=== PATIENT | male | born 1975 | race Caucasian/White ===

== ENCOUNTER 2019-04-06 17:31 | Emergency (ER) | payer OTHER ==
[~2019-04-06] VITALS: Ht 185.4 cm; Wt 109.1 kg
[2019-04-06] MEDS ORDERED: DOESNT KNOW NAMES (17:43)
[2019-04-06] MEDS ORDERED: TETRACAINE 0.5% OPHTH SOLN 4ML OD ONE (19:00)
[2019-04-06] MEDS ORDERED: FLUORESCEIN OPHTH 1 MG STRIP OD ONE (19:00)
--- NOTE | 2019-04-06 19:29 | REP ---
Clinical: Cough and chills . Comparison: None of the . Technique: PA and lateral. Findings: The mediastinum and cardiac silhouette are normal. Very subtle coarsened markings in the left mid to lower lung zone may reflect bronchitis. No effusion. No pneumothorax. Mediastinum and cardiac silhouette normal. Skeletal structures intact. Impression: 1. Bronchitis possible left lower lobe atelectasis. Electronically Signed by David Palumbo MD 04/06/2019 07:21 P
[2019-04-06] MEDS ORDERED: MUCI600T31 PO (19:36)
[2019-04-06] MEDS ORDERED: POLYSOL OP (19:36)
[2019-04-06] MEDS ORDERED: BENZ200C70 PO (19:36)
[2019-04-06 19:46] VITALS: BP 131/75
== END 2019-04-06 19:47 | disposition home or self-care (01) ==
LOC: M ED 17:31
DX: J06.9 Acute upper respiratory infection, unspecified (principal); H10.021 Other mucopurulent conjunctivitis, right eye; I10 Essential (primary) hypertension; G43.409 Hemiplegic migraine, not intractable, without status migrainosus; E78.00 Pure hypercholesterolemia, unspecified; F17.210 Nicotine dependence, cigarettes, uncomplicated; Z20.9 Contact with and (suspected) exposure to unspecified communicable disease; Z88.0 Allergy status to penicillin

== ENCOUNTER 2020-05-01 16:24 | Emergency (ER) | payer OTHER ==
[~2020-05-01] VITALS: Ht 185.4 cm; Wt 106.8 kg
[~2020-05-01 16:24] MED LIST: BENZ200C70 PO; DOESNT KNOW NAMES; MUCI600T31 PO; POLYSOL OP
[2020-05-01] MEDS ORDERED: GABA-843 PO (16:41)
[2020-05-01] MEDS ORDERED: HYDR-643 PO (16:41)
[2020-05-01] MEDS ORDERED: ROXI1TAB2 PO (16:41)
[2020-05-01] MEDS ORDERED: LISI-538 PO (16:41)
[2020-05-01] MEDS ORDERED: GEMF600T5 PO ×2 (16:41)
[2020-05-01] MEDS ORDERED: XARE15TA PO (16:41)
[2020-05-01] MEDS ORDERED: PRAZ2CAP PO (16:41)
[2020-05-01] MEDS ORDERED: ASPI81TA85 PO (16:41)
[2020-05-01] MEDS ORDERED: SERT-141 PO (16:41)
[2020-05-01] MEDS ORDERED: TRAZ-257 PO (16:41)
[2020-05-01] MEDS ORDERED: CREO3000 PO (16:41)
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
--- NOTE | 2020-05-01 17:16 | REP ---
REASON: Pain in the neck. There are no priors for comparison. Vertebral body height and alignment is within normal limits. There is degenerative disc space narrowing at every level. There is anterior and posterior osteophytic ridging seen C5-6 and C6-7. The facet joints are well aligned bilaterally. There is no acute fracture. There is no evidence of abnormal paraspinal soft tissue swelling. The imaged portion of the lung gonzales shows a 1.3-cm sized ground-glass nodule in the left lung apex. IMPRESSION: 1. Chronic C-spine changes. No evidence of a fracture. 2. Abnormal left lung field, as described above. Diagnostic contrast-enhanced CT examination of the chest is recommended. Electronically Signed by Luke Burgos DO 05/02/2020 05:03 P
[2020-05-01] MEDS ORDERED: NS 1,000 ML IV ONE (18:30)
[2020-05-01 19:09] LABS: BASO # 0.2 10^3/uL (0.0-0.2); BASO % 1.2 % (0.0-1.0); EOS # 0.4 10^3/uL (0.0-0.5); EOS % 3.2 % (0.0-3.0); HEMATOCRIT 32.4 % (42.0-52.0); HEMOGLOBIN 9.9 g/dl (13.5-17.5); LYMPH # 3.6 10^3/uL (1.5-5.0); LYMPH % 27.7 % (24.0-44.0); MEAN CORPUSCULAR HEMOGLOBIN 29.6 pg (27.0-33.0); MEAN CORPUSCULAR HGB CONC 30.6 g/dl (32.0-36.5); MONO # 1.4 10^3/uL (0.0-0.8); MONO % 10.5 % (0.0-5.0); NEUTROPHILS # 7.4 10^3/uL (1.5-8.5); NEUTROPHILS % 56.9 % (36.0-66.0); PLATELET COUNT, AUTOMATED 919 10^3/uL (150-450); RED BLOOD COUNT 3.34 10^6/uL (4.30-6.10)
[2020-05-01 19:35] LABS: ALBUMIN 2.5 GM/DL (3.2-5.2); BILIRUBIN,DIRECT 0.1 MG/DL (0.0-0.2); BILIRUBIN,TOTAL 0.2 MG/DL (0.2-1.0); TOTAL PROTEIN 7.2 GM/DL (6.4-8.2)
[2020-05-01] MEDS ORDERED: ISOVUE-370 76% 100ML VIAL As Ordered ONE (20:03)
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
[2020-05-01 22:09] VITALS: BP 115/68
--- NOTE | 2020-05-02 01:37 | ECGEPIP ---
[facility] - ED Test Date: 2020-05-01 Pat Name: DE HAWLEY Department: Room: - Gender: Male [employer]: HEVER : 1975 Requested By: DUYEN Lopez Order Number: [id number] Reading MD: Matthew Rose Measurements Intervals [place] Rate: 96 P: 30 OR: 134 QRS: 47 QRSD: 87 T: 47 QT: 342 QTc: 433 Interpretive Statements SINUS RHYTHM Low QRS complex voltage in the limb leads Comparison tracing not on file Electronically Signed on 05-02-2020 1:37:02 EDT by Matthew Rose
--- NOTE | 2020-05-04 07:42 | ED PDOC ---
Post-Departure Follow-Up radiology report faxed to [facility] Rbui Noriega MD May 04, 2020 07:42
== END 2020-05-01 22:11 | disposition home or self-care (01) ==
LOC: M ED 16:24
DX: R55 Syncope and collapse (principal); Z90.81 Acquired absence of spleen; Z90.411 Acquired partial absence of pancreas; J90 Pleural effusion, not elsewhere classified; I10 Essential (primary) hypertension; E78.5 Hyperlipidemia, unspecified; R51 Headache; F17.200 Nicotine dependence, unspecified, uncomplicated; Z97.8 Presence of other specified devices; Z88.0 Allergy status to penicillin; Z79.899 Other long term (current) drug therapy; Z79.82 Long term (current) use of aspirin; Z79.01 Long term (current) use of anticoagulants
CPT/HCPCS: 70450; 71260; 72125; 74177; 80047; 80076; 83690; 85025; 93005; 96360; 96361; 99284; Q9967

== ENCOUNTER → 2021-06-05 | Outpatient (CLI) | payer OTHER ==
[~2021-06-05] MED LIST changes: +ASPI81TA86 PO; +CREO3000 PO; +GABA-282 PO; +GEMF600T5 PO; +HYDR-643 PO; +LISI20TA33 PO; +PRAZ2CAP PO; +ROXI1TAB2 PO; +SERT-141 PO; +TRAZ-257 PO; +XARE15TA PO
--- NOTE | 2021-06-06 19:52 | REPVR ---
PROCEDURE INFORMATION: Exam: MR Lumbar Spine Without Contrast Exam date and time: 06/05/2021 2:37 PM Age: 45 years old Clinical indication: Pain; Lumbago; Additional info: Lumbar spondylosis TECHNIQUE: Imaging protocol: Multiplanar magnetic resonance images of the lumbar spine without intravenous contrast. COMPARISON: CT ABD/PEL W/IV CONTRAST ONLY 05/01/2020 8:08 PM FINDINGS: Vertebral body heights are maintained. No abnormal marrow signal. No cord compression. No abnormal cord signal. Conus medullaris terminates at the L1 level. Paravertebral soft tissues are unremarkable. L1-L2: No significant canal or foraminal narrowing. L2-L3: No significant canal or foraminal narrowing. L3-L4: No significant canal or foraminal narrowing. L4-L5: Slight broad-based disc bulge and facet hypertrophy cause mild canal narrowing with effacement of the bilateral lateral recesses. Slight impingement upon the traversing right L5 nerve root. Mild bilateral foraminal narrowing. L5-S1: No significant canal or foraminal narrowing. IMPRESSION: Mild spondylotic changes at L4-L5, as detailed above. Electronically signed by: Vladislav Kelly On 06/06/2021 19:51:11 PM
== END ==
LOC: M PLAIMG 13:47
PROVIDERS: ATTEND Pain Medicine Interventional Pain Medicine
DX: M47.817 Spondylosis without myelopathy or radiculopathy, lumbosacral region (principal)

== ENCOUNTER → 2023-09-08 | Day surgery (SDC) | payer OTHER ==
[~2023-09-08] VITALS: Ht 188 cm; Wt 107.1 kg
[~2023-09-08] MED LIST changes: +ECOT81TA5 PO; +LIDOCAINE 2% 100MG/5ML SDV (FOR ANES.) As Ordered ONE; +LOPI600T PO; +NS 1,000 ML IV ONE; +SIMETHICONE 40MG/0.6ML DROPS 30ML As Ordered ONE; +fentaNYL 100 MCG/2 ML INJECTION As Ordered ONE; +propofoL 500 MG/50 ML VIAL As Ordered ONE
[2023-09-08 14:22] VITALS: TEMP 99
[2023-09-08 14:40] VITALS: BP 107/71; O2SAT 97
== END | disposition home or self-care (01) ==
LOC: M OPP 12:38
PROVIDERS: ATTEND Surgery
DX: Z86.010 Personal history of colon polyps (principal); D12.4 Benign neoplasm of descending colon; K21.00 Gastro-esophageal reflux disease with esophagitis, without bleeding; K64.0 First degree hemorrhoids; K22.70 Barrett's esophagus without dysplasia; K22.89 Other specified disease of esophagus; K29.70 Gastritis, unspecified, without bleeding; I10 Essential (primary) hypertension; R12 Heartburn; F41.9 Anxiety disorder, unspecified; F32.A Depression, unspecified; F17.210 Nicotine dependence, cigarettes, uncomplicated; Z96.89 Presence of other specified functional implants; Z88.0 Allergy status to penicillin; Z79.82 Long term (current) use of aspirin; Z79.899 Other long term (current) drug therapy
CPT/HCPCS: 43239; 45385; 88305; J3010

== ENCOUNTER 2024-04-19 11:13 | Day surgery (SDC) | payer OTHER ==
[~2024-04-19] VITALS: Ht 188 cm; Wt 109.7 kg
[~2024-04-19 11:13] MED LIST changes: +ACET-683 PO; +ATOR1TAB21 PO; +CYCL-707 PO; +ERGO500029 PO; +FENO48TA8 PO; -LIDOCAINE 2% 100MG/5ML SDV (FOR ANES.) As Ordered ONE; -NS 1,000 ML IV ONE; +OMEP40CA5 PO; -SIMETHICONE 40MG/0.6ML DROPS 30ML As Ordered ONE; +ZOLO100T PO; -fentaNYL 100 MCG/2 ML INJECTION As Ordered ONE; -propofoL 500 MG/50 ML VIAL As Ordered ONE
[2024-04-19] MEDS: NS 1,000 ML IV STA (11:40)
[2024-04-19] MEDS ORDERED: propofoL 500 MG/50 ML VIAL As Ordered ONE (11:51)
[2024-04-19 12:05] VITALS: TEMP 97.6
[2024-04-19 12:28] VITALS: BP 130/90; O2SAT 96
== END 2024-04-19 12:37 | disposition home or self-care (01) ==
LOC: M OPP 11:13
PROVIDERS: ATTEND Surgery
DX: Z12.11 Encounter for screening for malignant neoplasm of colon (principal); Z86.010 Personal history of colon polyps; D12.5 Benign neoplasm of sigmoid colon; F17.200 Nicotine dependence, unspecified, uncomplicated; Z79.1 Long term (current) use of non-steroidal anti-inflammatories (NSAID); Z79.82 Long term (current) use of aspirin; Z79.891 Long term (current) use of opiate analgesic; Z79.899 Other long term (current) drug therapy; Z88.0 Allergy status to penicillin; Z91.013 Allergy to seafood